=== PATIENT | female | born 1995 | race African-American/Black ===

== ENCOUNTER 2020-04-25 20:09 | Emergency (ER) | payer OTHER ==
[2020-04-25 20:26] VITALS: BP 130/72; PULSE 80; RESP 18; TEMP 98.4
[2020-04-25 21:25] LABS: Appearance,Urine Cloudy (Clear); Bilirubin,Urine Negative (Negative); Blood,Urine Negative (Negative); Color,Urine Yellow; Glucose,Urine (UA) Negative (Negative); Ketones,Urine Negative (Negative); Leukocyte Esterase,Urine Large (Negative); Mucus,Urine Few /hpf; Nitrite,Urine Negative (Negative); PH, Urine 5.5 (5.0-8.0); Protein,Urine 1+ (Negative); RBC,Urine 47 /hpf (0-5); Specific Gravity,Urine 1.032 (1.001-1.035); Squamous Epithelial Cell,Urine 1 /hpf (0-4); Urobilinogen,Urine <2.0 mg/dL (<2.0); WBC,Urine >182 /hpf (0-5)
[2020-04-25] MEDS ORDERED: metroNIDAZOLE 500 MG TAB PO STA (21:36)
--- NOTE | 2020-04-25 21:43 | ED ---
Female Urogenital HPI - General Source: patient Mode of arrival: ambulatory Limitations: no limitations - History of Present Illness Last Menstrual Period: 04/18/20 <Nakita Rabago - Last Filed: 04/25/20 21:45> <Loreta Martinez - Last Filed: 04/27/20 13:34> - General Chief complaint: Urogenital Stated complaint: Female GTU Time Seen by Provider: 04/25/20 20:28 - History of Present Illness Initial comments: Patient is a 25-year-old female presenting to the emergency department with concerns about possibly having a tampon stuck. Patient states last week she thought she was developing a yeast infection, so she looked up home remedies and soaked a small tampon and some essential oils, she did this a few times. She states last time she did it was Thursday or but she does not remember taking the last tampon out. She is unsure. Patient states since then she is developing discharge and further irritation, some occasional cramping. She denies being , she is on control. She denies any fever or chills, no nausea or vomiting. She has no further complaints at this time. (Nakita Rabago) - Related Data Allergies Allergy/AdvReac Type Severity Reaction Status Date / Time No Known Allergies Allergy Verified 04/25/20 20:25 Review of Systems ROS Other: All systems not noted in ROS Statement are negative. <Nakita Rabago - Last Filed: 04/25/20 21:45> ROS Other: All systems not noted in ROS Statement are negative. <Loreta Martinez - Last Filed: 04/27/20 13:34> ROS Statement: Those systems with pertinent positive or pertinent negative responses have been documented in the HPI. Past Medical History Past Medical History: No Reported History History of Any Multi-Drug Resistant Organisms: None Reported Past Surgical History: No Surgical Hx Reported Past Psychological History: No Psychological Hx Reported Smoking Status: Never smoker Past Alcohol Use History: None Reported Past Drug Use History: None Reported <Nakita Rabago - Last Filed: 04/25/20 21:45> General Exam Limitations: no limitations External exam: Present: normal external exam Speculum exam: Present: cervical discharge. Absent: foreign body (Cervix appears erythematous, yellow, frothy discharge.) By manual exam: Present: cervical motion tenderness (Mild tenderness.) <Nakita Rabago - Last Filed: 04/25/20 21:45> - General Exam Comments Initial Comments: GENERAL: Patient is well-developed and well-nourished. Patient is nontoxic and in no acute distress. HEAD: Atraumatic, normocephalic. EYES: Pupils equal round and reactive to light, extraocular movements intact, sclera anicteric, conjunctiva are normal. Eyelids were unremarkable. ENT: TMs normal, nares patent, oropharynx clear without exudates. Moist mucous membranes. NECK: Normal range of motion, supple without lymphadenopathy or JVD. LUNGS: Unlabored respirations. Breath sounds clear to auscultation bilaterally and equal. No wheezes rales or rhonchi. HEART: Regular rate and rhythm without murmurs, rubs or gallops. ABDOMEN: Soft, nontender, normoactive bowel sounds. No guarding, no rebound. No masses appreciated. MUSCULOSKELETAL: Normal extremities with adequate strength and normal range of motion, no pitting or edema. No clubbing or cyanosis. NEUROLOGICAL: Patient is alert and oriented x 3. Motor and sensory are also intact. Symmetrical smile. Normal speech, normal gait. PSYCH: Normal mood, normal affect. SKIN: Warm, Dry, normal turgor, no rashes or lesions noted. (Nakita Rabago) Course Vital Signs 04/25/20 20:24 Temperature 98.4 F Pulse Rate 80 Respiratory 18 Rate Blood Pressure 130/72 O2 Sat by Pulse 98 Oximetry Medical Decision Making <Nakita Rabago - Last Filed: 04/25/20 21:45> <Loreta Martinez - Last Filed: 04/27/20 13:34> - Medical Decision Making Patient is a 25-year-old female here with concerns of a tampon stuck for the last few days. On vaginal exam, there is no foreign body present, cervix appears erythematous, yellow frothy discharge noted. Urine shows WBC clumps, rapid Trichomonas is positive. I also did gonorrhea, chlamydia and genital culture which are all pending. I discussed these findings with the patient. Patient only wishes to be treated for the Trichomonas at this time, she will await the results of the swaps for any further treatment. Patient was given 2 g of Flagyl in the ER. I discussed with patient that she cannot drink with this medication for approximately one to 2 days afterwards. I did recommend getting retested in a few weeks. Patient is stable for discharge. Patient is in agreement with this plan of care. Return parameters were discussed with the patient and they verbalized understanding. Case discussed with Dr. Martinez. (Nakita Rabago) I was available for consultation in the emergency department. The history and physical exam were done by the midlevel provider. I was consulted for this patients care. I reviewed the case with the midlevel provider and based on their presentation of the patient, I agree with the assessment, medical decision making and plan of care as documented. Chart was dictated using [employer] dictation software. Attempts were made to correct any dictation errors however some typographical errors may persist. Patient was seen during a national state of emergency due to the Covid-19 pandemic. (Loreta Martinez) - Lab Data Lab Results 04/25/20 04/25/20 04/25/20 Range/Units 21:11 21:11 21:11 Urine Color Yellow Urine Appearance Cloudy H (Clear) Urine pH 5.5 (5.0-8.0) Ur Specific [place] 1.032 (1.001-1.035) Urine Protein 1+ H (Negative) Urine Glucose (UA) Negative (Negative) Urine Ketones Negative (Negative) Urine Blood Negative (Negative) Urine Nitrite Negative (Negative) Urine Bilirubin Negative (Negative) Urine Urobilinogen <2.0 (<2.0) mg/dL Ur Leukocyte Esterase Large H (Negative) Urine RBC 47 H (0-5) /hpf Urine WBC >182 H (0-5) /hpf Urine WBC Clumps Few H (None) /hpf Ur Squamous Epith Cells 1 (0-4) /hpf Urine Mucus Few H (None) /hpf Urine HCG, Qual Not Detected (Not Detectd) Trichomonas Ag (Rapid) Positive H (Negative) Disposition Is patient prescribed a controlled substance at d/c from ED?: No <Nakita Rabago - Last Filed: 04/25/20 21:45> <Loreta Martinez - Last Filed: 04/27/20 13:34> Clinical Impression: Trichomoniasis, Vaginal discharge Disposition: HOME SELF-CARE Condition: Stable Instructions (If sedation given, give patient instructions): Trichomoniasis (ED) Additional Instructions: Please return to the Emergency Department if symptoms worsen or any other concerns. Please do not drink any alcohol for 1-2 days after this medication today. Swabs are pending, they will call you with any further treatment recommendations. Please follow-up with your [facility] for testing in a few weeks. Referrals: Nonstaff,Physician [Primary Care Provider] - 1-2 days
[2020-04-27 13:43] LABS: C. trachomatis,PCR Negative (Neg,Equiv); Chlamydia trachomatis Source Cervix; N. gonorrhoeae,PCR Negative (Neg,Equiv); Neisseria Source Cervix
== END 2020-04-25 21:55 | disposition home or self-care (01) ==
LOC: EC 20:09
DX: A59.9 Trichomoniasis, unspecified (principal)
CPT/HCPCS: 81001; 81025; 87070; 87086; 87491; 87591; 87808; 99283

== ENCOUNTER 2020-05-10 04:22 | Emergency (ER) | payer OTHER ==
[2020-05-10 04:31] VITALS: BP 122/78; PULSE 76; RESP 18; TEMP 98.5
--- NOTE | 2020-05-10 04:36 | ED ---
Recheck HPI - General Chief Complaint: Abdominal Pain Stated Complaint: Pain all over Time Seen by Provider: 05/10/20 04:35 Source: patient, RN notes reviewed, old records reviewed Mode of arrival: ambulatory Limitations: no limitations, physical limitation - History of Present Illness Initial Comments: This is a 25-year-old female who presents today for evaluation of multiple complaints. She's been doing with her boyfriend who cheated on her and possible STD is TIA symptoms, vaginal discharge itching and pain. Patient also complaining of diffuse body aches and pains which she was told she may or may not have rheumatoid arthritis. She denies any other significant illness, no recurrent new sexual activity since treatment. No travel history or sick contacts and patient continually going through outpatient evaluation regarding our medical surgical history or otherwise negative MD Complaint: other (Persistent vaginal discharge pain and dysuria) -: days(s) Returns Today for: Called Because of Abnormal Lab/Test, persistent/worsening pain related to initial visit, other (Symptoms not improving) Symptoms Since Prior Visit: worsening pain Context: other (Persistent symptoms despite treatment) Associated Symptoms: nausea, other ( generalized body aches and pains) Treatments Prior to Arrival: other (none) - Related Data Previous Rx's Medication Instructions Recorded Naproxen [Naprosyn] 500 mg PO Q12HR PRN #60 tab 05/10/20 metroNIDAZOLE [Flagyl] 500 mg PO BID #28 tab 05/10/20 Allergies Allergy/AdvReac Type Severity Reaction Status Date / Time No Known Allergies Allergy Verified 05/16/20 14:51 Review of Systems ROS Statement: Those systems with pertinent positive or pertinent negative responses have been documented in the HPI. ROS Other: All systems not noted in ROS Statement are negative. Past Medical History Past Medical History: No Reported History History of Any Multi-Drug Resistant Organisms: None Reported Past Surgical History: No Surgical Hx Reported Past Psychological History: No Psychological Hx Reported Smoking Status: Never smoker Past Alcohol Use History: None Reported Past Drug Use History: None Reported General Exam General appearance: alert, in no apparent distress Head exam: Present: atraumatic, normocephalic, normal inspection Eye exam: Present: normal appearance, PERRL, EOMI. Absent: scleral icterus, conjunctival injection, periorbital swelling ENT exam: Present: normal exam, mucous membranes moist Neck exam: Present: normal inspection. Absent: tenderness, meningismus, lymphadenopathy Respiratory exam: Present: normal lung sounds bilaterally. Absent: respiratory distress, wheezes, rales, rhonchi, stridor Cardiovascular Exam: Present: regular rate, normal rhythm, normal heart sounds. Absent: systolic murmur, diastolic murmur, rubs, gallop, clicks GI/Abdominal exam: Present: soft, normal bowel sounds. Absent: distended, tenderness, guarding, rebound, rigid Extremities exam: Present: normal inspection, full ROM, normal capillary refill. Absent: tenderness, pedal edema, joint swelling, calf tenderness Back exam: Present: normal inspection Neurological exam: Present: alert, oriented X3, CN II-XII intact Psychiatric exam: Present: normal affect, normal mood Skin exam: Present: warm, dry, intact, normal color. Absent: rash Course Vital Signs 05/10/20 04:26 Temperature 98.5 F Pulse Rate 76 Respiratory 18 Rate Blood Pressure 122/78 O2 Sat by Pulse 99 Oximetry - Reevaluation(s) Reevaluation #1: Medical record is reviewed Patient's pain is improved here in the ER symptoms improved here Patient informed of results and questions have been answered Patient feels good for discharge Medical Decision Making - Medical Decision Making 25 female with multiple complaints, generalized body pain currently going through rheumatoid arthritis evaluation. Patient does have signs and symptoms of persistent STI which she will treat culture here in the emergency department - Lab Data Lab Results 05/10/20 05/10/20 Range/Units 05:47 05:47 Urine Color Light Yellow Urine Appearance Clear (Clear) Urine pH 6.0 (5.0-8.0) Ur Specific [place] 1.006 (1.001-1.035) Urine Protein Negative (Negative) Urine Glucose (UA) Negative (Negative) Urine Ketones Negative (Negative) Urine Blood Negative (Negative) Urine Nitrite Negative (Negative) Urine Bilirubin Negative (Negative) Urine Urobilinogen <2.0 (<2.0) mg/dL Ur Leukocyte Esterase Large H (Negative) Urine RBC 13 H (0-5) /hpf Urine WBC 4 (0-5) /hpf Ur Squamous Epith Cells 2 (0-4) /hpf Urine Bacteria Rare H (None) /hpf Chlamydia Source Urine Chlamydia DNA (PCR) Negative (Neg,Equiv) N. gonorrhoeae Source Urine N.gonorrhoeae DNA Probe Negative (Neg,Equiv) Disposition Clinical Impression: Vaginal discharge, Abdominal pain, Trichomoniasis Disposition: HOME SELF-CARE Condition: Good Instructions (If sedation given, give patient instructions): Sexually Transmitted Diseases (ED) Prescriptions: metroNIDAZOLE [Flagyl] 500 mg PO BID #28 tab Naproxen [Naprosyn] 500 mg PO Q12HR PRN #60 tab PRN Reason: Pain Is patient prescribed a controlled substance at d/c from ED?: No Referrals: Nonstaff,Physician [Primary Care Provider] - 1-2 days
[2020-05-10] MEDS ORDERED: cefTRIAXone 250 MG VIAL IM STA (05:37)
[2020-05-10] MEDS ORDERED: dexAMETHasone 4 MG TAB PO STA (05:37)
[2020-05-10] MEDS ORDERED: ETODOLAC 400 MG TAB PO STA (05:37)
[2020-05-10] MEDS ORDERED: AZITHROMYCIN 500 MG TAB PO STA (05:37)
[2020-05-10 06:19] LABS: Appearance,Urine Clear (Clear); Bacteria,Urine Rare /hpf; Bilirubin,Urine Negative (Negative); Blood,Urine Negative (Negative); Color,Urine Light Yellow; Glucose,Urine (UA) Negative (Negative); Ketones,Urine Negative (Negative); Leukocyte Esterase,Urine Large (Negative); Nitrite,Urine Negative (Negative); Protein,Urine Negative (Negative); RBC,Urine 13 /hpf (0-5); Specific Gravity,Urine 1.006 (1.001-1.035); Squamous Epithelial Cell,Urine 2 /hpf (0-4); Urobilinogen,Urine <2.0 mg/dL (<2.0); WBC,Urine 4 /hpf (0-5)
[2020-05-11 14:46] LABS: C. trachomatis,PCR Negative (Neg,Equiv); Chlamydia trachomatis Source Urine; N. gonorrhoeae,PCR Negative (Neg,Equiv); Neisseria Source Urine
== END 2020-05-10 06:20 | disposition home or self-care (01) ==
LOC: EC 04:22
DX: A59.9 Trichomoniasis, unspecified (principal)
CPT/HCPCS: 81001; 87491; 87591; 99284; J8540

== ENCOUNTER 2020-05-16 12:44 | Emergency (ER) | payer OTHER ==
--- NOTE | 2020-05-16 13:16 | ED ---
Extremity Problem HPI - General Source: patient Mode of arrival: ambulatory Limitations: no limitations <Kareem Tilley - Last Filed: 05/16/20 13:14> <Nakita Rabago - Last Filed: 05/16/20 14:49> - General Chief complaint: Extremity Injury, Upper Stated complaint: hand injury Time Seen by Provider: 05/16/20 13:10 - History of Present Illness Initial comments: 25-year-old female presents emergency Department with chief complaint of right hand injury. Patient states she's fell off some stairs striking her hand. She has no other injuries no other injury no loss conscious. Patient is left-hand dominant. Patient has pain over her second and third finger, hand region. Patient offers no other complaints. (Kareem Tilley) Did examine the patient, she said 25-year-old female presenting of pain in her right hand. She states she hit it on a step. She is having pain in her right middle finger mostly. She denies any other injuries. There are no further complaints. (Nakita Rabago) - Related Data Previous Rx's Medication Instructions Recorded Naproxen [Naprosyn] 500 mg PO Q12HR PRN #60 tab 05/10/20 metroNIDAZOLE [Flagyl] 500 mg PO BID #28 tab 05/10/20 Allergies Allergy/AdvReac Type Severity Reaction Status Date / Time No Known Allergies Allergy Verified 05/16/20 13:15 Review of Systems ROS Other: All systems not noted in ROS Statement are negative. <Kareem Tilley - Last Filed: 05/16/20 13:14> ROS Other: All systems not noted in ROS Statement are negative. <Nakita Rabago - Last Filed: 05/16/20 14:49> ROS Statement: Those systems with pertinent positive or pertinent negative responses have been documented in the HPI. Past Medical History Past Medical History: No Reported History History of Any Multi-Drug Resistant Organisms: None Reported Past Surgical History: No Surgical Hx Reported Past Psychological History: No Psychological Hx Reported Smoking Status: Never smoker Past Alcohol Use History: None Reported Past Drug Use History: None Reported <Kareem Tilley - Last Filed: 05/16/20 13:14> General Exam General appearance: alert, in no apparent distress Head exam: Present: atraumatic, normocephalic, normal inspection Respiratory exam: Present: normal lung sounds bilaterally. Absent: respiratory distress, wheezes, rales, rhonchi, stridor Cardiovascular Exam: Present: regular rate, normal rhythm, normal heart sounds. Absent: systolic murmur, diastolic murmur, rubs, gallop, clicks Extremities exam: Present: other (Right hand there is tenderness over the second and third MCP region, no sniffing deformity neurovascular intact no wrist tenderness) <Kareem Tilley - Last Filed: 05/16/20 13:14> <Nakita Rabago - Last Filed: 05/16/20 14:49> - General Exam Comments Initial Comments: GENERAL: Patient is well-developed and well-nourished. Patient is nontoxic and in no acu te distress. HEAD: Atraumatic, normocephalic. EYES: Pupils equal round and reactive to light, extraocular movements intact, sclera anicteric, conjunctiva are normal. Eyelids were unremarkable. ENT: Nares patent, oropharynx clear without exudates. Moist mucous membranes. NECK: Normal range of motion, supple without lymphadenopathy or JVD. LUNGS: Unlabored respirations. Breath sounds clear to auscultation bilaterally and equal. No wheezes rales or rhonchi. HEART: Regular rate and rhythm without murmurs, rubs or gallops. ABDOMEN: Soft, nontender, normoactive bowel sounds. No guarding, no rebound. No masses appreciated. : Deferred MUSCULOSKELETAL: Patient does have full range of motion of her right hand and fingers with pain at the end range of extension. No deformity seen, no swelling. No clubbing or cyanosis. NEUROLOGICAL: Patient is alert and oriented x 3. Normal speech, normal gait. PSYCH: Normal mood, normal affect. SKIN: Warm, Dry, normal turgor, no rashes or lesions noted. (Nakita Rabago) Course Vital Signs 05/16/20 13:12 Temperature 100.0 F H Pulse Rate 83 Respiratory 20 Rate Blood Pressure 120/62 O2 Sat by Pulse 98 Oximetry Medical Decision Making <Nakita Rabago - Last Filed: 05/16/20 14:49> - Medical Decision Making Patient is a 25-year-old female here with right hand pain after she hit it on a step. X-rays of the right hand reveal no acute fractures dislocations. Discussed with patient this is most likely a sprain. Recommended ice to the area, ibuprofen for any discomfort. Patient is stable for discharge. Patient is in agreement with this plan of care. Return parameters were discussed with the patient and they verbalized understanding. Case discussed with Dr. Zhu. (Nakita Rabago) Disposition <Kareem Tilley - Last Filed: 05/16/20 13:14> Is patient prescribed a controlled substance at d/c from ED?: No Time of Disposition: 14:49 <Nakita Rabago - Last Filed: 05/16/20 14:49> Clinical Impression: Sprain of right hand Disposition: HOME SELF-CARE Condition: Stable Instructions (If sedation given, give patient instructions): Hand Sprain (ED) Additional Instructions: Please return to the Emergency Department if symptoms worsen or any other concerns. Recommended ice to the area, Tylenol Motrin for any discomfort. Follow-up with your family doctor if symptoms persist. Referrals: Nonstaff,Physician [Primary Care Provider] - 1-2 days
--- NOTE | 2020-05-16 14:22 | XR ---
EXAMINATION TYPE: XR hand complete RT DATE OF EXAM: 05/16/2020 COMPARISON: None HISTORY: Pain TECHNIQUE: 3 view right hand FINDINGS: No acute fractures or dislocations are evident. Joint spaces are preserved. Soft tissues ar e normal. Follow up exams would be recommended 7-10 days from acute trauma for continued pain. IMPRESSION: 1. Normal three-view right hand right
[2020-05-16 15:02] VITALS: BP 99/59; PULSE 65; RESP 18; TEMP 98
== END 2020-05-16 15:14 | disposition home or self-care (01) ==
LOC: EC 12:44
DX: S63.652A Sprain of metacarpophalangeal joint of right middle finger, initial encounter (principal); S63.650A Sprain of metacarpophalangeal joint of right index finger, initial encounter; W10.9XXA Fall (on) (from) unspecified stairs and steps, initial encounter; Y92.009 Unspecified place in unspecified non-institutional (private) residence as the place of occurrence of the external cause
CPT/HCPCS: 99283

== ENCOUNTER 2021-03-18 01:48 | Emergency (ER) | payer OTHER ==
[2021-03-18 02:03] VITALS: BP 136/82; PULSE 103; RESP 18; TEMP 98.2
[2021-03-18] MEDS ORDERED: KETOROLAC 15 MG/ML 1 ML VIAL IM STA (02:46)
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
== END 2021-03-18 03:27 | disposition home or self-care (01) ==
LOC: EC 01:48
DX: J02.9 Acute pharyngitis, unspecified (principal)
CPT/HCPCS: 99283; 96372; 87081; 87430; J1885

== ENCOUNTER 2021-05-01 00:54 | Emergency (ER) | payer OTHER ==
[2021-05-01 01:04] VITALS: RESP 18; TEMP 98
[2021-05-01] MEDS ORDERED: KETOROLAC 15 MG/ML 1 ML VIAL IM STA (02:19)
[2021-05-01] MEDS ORDERED: KETOROLAC 15 MG/ML 1 ML VIAL IVP STA (02:30)
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
[2021-05-01 04:28] VITALS: BP 124/84; PULSE 82
[2021-05-01 14:24] LABS: HIV 2 AB Non-Reactive (Non-Reactive); HIV AB P24 Non-Reactive (Non-Reactive); HIV P24 AG Non-Reactive (Non-Reactive)
== END 2021-05-01 04:38 | disposition home or self-care (01) ==
LOC: EC 00:54
DX: J02.9 Acute pharyngitis, unspecified (principal)
CPT/HCPCS: 36415; 87070; 87390; 87430; 96374; 99283

== ENCOUNTER 2021-09-19 18:45 | Emergency (ER) | payer OTHER ==
[2021-09-19] MEDS ORDERED: IBUPROFEN 800 MG TAB PO STA (19:27)
--- NOTE | 2021-09-19 20:00 | XR ---
PROCEDURE: XR toes LT - 3V DATE AND TIME: 09/19/2021 7:50 PM CLINICAL INDICATION: right hallux pain and bruising, after trauma TECHNIQUE: Department protocol COMPARISON: None FINDINGS: There is no fracture or malalignment. The soft tissues are unremarkable. IMPRESSION: NO ACUTE PROCESS.
[2021-09-19] MEDS ORDERED: HYDROcodone/APAP 5-325MG 1 EACH TAB PO STA (20:13)
--- NOTE | 2021-09-19 20:32 | ED ---
Lower Extremity Injury HPI - General Chief Complaint: Extremity Injury, Lower Stated Complaint: poss broken toe left foot Time Seen by Provider: 09/19/21 19:04 Source: patient, family, RN notes reviewed Mode of arrival: ambulatory Limitations: no limitations - History of Present Illness Initial Comments: This is a 26-year-old female who presents to the emergency department for left foot pain. Earlier today, she dropped a cast iron the pot onto her left foot and has had excruciating pain to the left great toe and the second toe. States that the pain is now traveling up the leg. She is unable to put weight on the foot. He has not iced it or taken any OTC medication for the pain. Denies any fevers, chills, sore throat, cough, dyspnea, chest pain, palpitations, abdominal pain, nausea, vomiting, diarrhea, back pain, or headaches. MD Complaint: foot injury Injury: Foot: Left Place: home Worsens With: weight bearing, movement, palpation Context: direct blow Associated Symptoms: unable to bear weight - Related Data Previous Rx's Medication Instructions Recorded Naproxen [Naprosyn] 500 mg PO Q12HR PRN #60 tab 05/10/20 metroNIDAZOLE [Flagyl] 500 mg PO BID #28 tab 05/10/20 methylPREDNISolone Dose Pack 4 mg PO DIRECTED #1 packet 05/01/21 [Medrol Dose Pack] Allergies Allergy/AdvReac Type Severity Reaction Status Date / Time No Known Allergies Allergy Verified 05/01/21 01:04 Review of Systems ROS Statement: Those systems with pertinent positive or pertinent negative responses have been documented in the HPI. ROS Other: All systems not noted in ROS Statement are negative. Past Medical History Past Medical History: No Reported History Additional Past Medical History / Comment(s): chronic pain issues History of Any Multi-Drug Resistant Organisms: None Reported Past Surgical History: No Surgical Hx Reported Past Psychological History: No Psychological Hx Reported Smoking Status: Never smoker Past Alcohol Use History: Occasional Past Drug Use History: None Reported General Exam Limitations: no limitations General appearance: alert, in distress Head exam: Present: atraumatic, normocephalic, normal inspection Respiratory exam: Present: normal lung sounds bilaterally. Absent: respiratory distress, wheezes, rales, rhonchi, stridor Cardiovascular Exam: Present: regular rate, normal rhythm, normal heart sounds. Absent: systolic murmur, diastolic murmur, rubs, gallop, clicks Extremities exam: Present: other (Mild swelling and exquisite tenderness to the left great toe and second toe. No passive range of motion secondary to pain. 2+ dorsalis pedis and tibialis posterior pulses and capillary refill less than 1 second.) Neurological exam: Present: alert, oriented X3, CN II-XII intact Psychiatric exam: Present: normal affect, normal mood Skin exam: Present: warm, dry, intact, normal color. Absent: rash Course Vital Signs 09/19/21 09/19/21 18:55 20:51 Temperature 97.9 F 97.8 F Pulse Rate 70 77 Respiratory 18 20 Rate Blood Pressure 121/85 124/72 O2 Sat by Pulse 100 97 Oximetry Medical Decision Making - Medical Decision Making This is a 26-year-old female who presents to the emergency department for left foot pain. X-rays obtained revealing no acute abnormalities. Patient given starter packs for ibuprofen 600 mg and Tylenol #3 due to her severe pain. She was also given a postop shoe. Crutches were provided per her request, as she is unable to bear weight. Advised that if symptoms do not improve, she may need a repeat x-ray in 7-10 days to reevaluate for possible fracture. Instructed her to ice the foot for the first 2 days followed by heat there afterwards. She should take [id number] ibuprofen and Tylenol as needed for the pain as well. Return precautions reviewed in depth, the patient is instructed to return to the emergency department with any new, worsening, or concerning symptoms. Patient verbalized understanding. This case was discussed in detail with the attending ED physician. Presentation, findings, and treatment plan discussed in detail as well. - Radiology Data Radiology results: report reviewed, image reviewed Disposition Clinical Impression: Contusion of right foot including toes Disposition: HOME SELF-CARE Instructions (If sedation given, give patient instructions): Foot Contusion (ED) Additional Instructions: Return to the emergency department with any new, worsening, or concerning symptoms. Take ibuprofen and Tylenol as needed for pain. Use the walking shoe as needed, but make sure you are wearing a hard sole shoe. Apply ice for the first 2 days followed by heat there afterwards. Use crutches as needed until you are able to put weight on your foot. If symptoms do not improve, you may need a repeat x-ray in 7-10 days to reevaluate for possible fracture. Is patient prescribed a controlled substance at d/c from ED?: No Referrals: Nonstaff,Physician [Primary Care Provider] - 1-2 days
[2021-09-19] MEDS ORDERED: IBUPROFEN 600 MG STARTER PACK 4 TAB BTL PO STA (20:45)
[2021-09-19] MEDS ORDERED: ACET/COD 300 MG/30 MG STARTER PACK 6 TAB BTL PO STA (20:45)
[2021-09-19 20:52] VITALS: BP 124/72; PULSE 77; RESP 20; TEMP 97.8
== END 2021-09-19 20:58 | disposition home or self-care (01) ==
LOC: EC 18:45
DX: S90.32XA Contusion of left foot, initial encounter (principal); W20.8XXA Other cause of strike by thrown, projected or falling object, initial encounter; Y92.009 Unspecified place in unspecified non-institutional (private) residence as the place of occurrence of the external cause
CPT/HCPCS: 99283

== ENCOUNTER 2022-01-10 20:34 | Emergency (ER) | payer OTHER ==
[2022-01-10 20:38] VITALS: BP 112/65; PULSE 68; RESP 18; TEMP 97.8
[2022-01-10] MEDS ORDERED: BUPIVACAINE (PF) 0.5% 30 ML VIAL SQ STA (21:26)
--- NOTE | 2022-01-10 21:28 | ED ---
Extremity Problem HPI - General Chief complaint: Extremity Problem,Nontraumatic Stated complaint: lt toe pain Time Seen by Provider: 01/10/22 21:12 Source: patient, RN notes reviewed Mode of arrival: ambulatory Limitations: no limitations - History of Present Illness Initial comments: This is a pleasant 26-year-old female who presents to the emergency department complaining of left great toe pain. Patient states she dropped a cast iron frying [place] on her toe about 3 months ago. Patient states she has been having problems with her toe since then. Patient states she had plain film x-rays done at this facility as well as the facility across [facility] and there was no abnormality to the bone. Patient states she has a black area under her toenail. Her toenail is now coming loose and she feels like it is going to fall off. However this is irritating her toe. No headache, no fever or chills, no changes in vision or hearing, no sore throat or difficulty with speech, no neck pain, no chest pain or shortness of breath, no abdominal pain, no nausea or vomiting, no changes in urination or bowel movements, no numbness or tingling, no skin rashes or lesions. Past medical, surgical, social, and family history reviewed. - Related Data Previous Rx's Medication Instructions Recorded Naproxen [Naprosyn] 500 mg PO Q12HR PRN #60 tab 05/10/20 metroNIDAZOLE [Flagyl] 500 mg PO BID #28 tab 05/10/20 methylPREDNISolone Dose Pack 4 mg PO DIRECTED #1 packet 05/01/21 [Medrol Dose Pack] HYDROcodone/APAP 5-325MG [[place] 1 tab PO Q6HR PRN 3 Days #12 tab 01/10/22 5-325] Ibuprofen [Motrin] 600 mg PO Q8HR PRN #30 tab 01/10/22 Allergies Allergy/AdvReac Type Severity Reaction Status Date / Time No Known Allergies Allergy Verified 01/10/22 20:38 Review of Systems ROS Statement: Those systems with pertinent positive or pertinent negative responses have been documented in the HPI. ROS Other: All systems not noted in ROS Statement are negative. Past Medical History Past Medical History: No Reported History Additional Past Medical History / Comment(s): chronic pain issues History of Any Multi-Drug Resistant Organisms: None Reported Past Surgical History: No Surgical Hx Reported Past Psychological History: No Psychological Hx Reported Smoking Status: Never smoker Past Alcohol Use History: Occasional Past Drug Use History: None Reported General Exam Limitations: no limitations General appearance: alert, in no apparent distress Head exam: Present: atraumatic, normocephalic, normal inspection Eye exam: Present: normal appearance, EOMI Neck exam: Present: normal inspection Respiratory exam: Present: normal lung sounds bilaterally. Absent: respiratory distress, wheezes, rales, rhonchi, stridor Cardiovascular Exam: Present: regular rate, normal rhythm, normal heart sounds. Absent: systolic murmur, diastolic murmur, rubs, gallop, clicks GI/Abdominal exam: Absent: distended Right Ankle exam: Present: normal inspection, full ROM. Absent: tenderness, swelling Foot/Toe exam: Present: full ROM. Absent: tenderness, abrasion, laceration, ecchymosis, deformity, crepitus, dislocation, erythema, amputation, puncture wound, foreign body, calcaneal tenderness, nail avulsion, subungual hematoma Neurovascular tendon exam: Present: no vascular compromise. Absent: pulse defi cit, abnormal cap refill, motor deficit, sensory deficit, tendon deficit, extremity cold to touch, pallor, decreased fine/light touch, foot drop, peroneal nerve deficit, significant pain with passive ROM of distal joint Gait: observed and normal Left Lower Leg exam: Present: normal inspection. Absent: tenderness, swelling, abrasion Ankle exam: Present: normal inspection, full ROM. Absent: tenderness, swelling Foot/Toe exam: Present: full ROM, tenderness, ecchymosis, nail avulsion (Partial nail avulsion with old subungual hematoma), subungual hematoma. Absent: normal inspection (No evidence of infectious process. No erythema. No bleeding. No discharge. Is intact. Capillary refill less than 2 seconds), swelling, abrasion, laceration, deformity, crepitus, dislocation, erythema, amputation, puncture wound, foreign body, calcaneal tenderness, tenderness at base of 5th metatarsal Neurovascular tendon exam: Present: no vascular compromise. Absent: abnormal cap refill, motor deficit, sensory deficit, tendon deficit, extremity cold to touch, pallor Course Vital Signs 01/10/22 20:37 Temperature 97.8 F Pulse Rate 68 Respiratory 18 Rate Blood Pressure 112/65 O2 Sat by Pulse 98 Oximetry Procedures - Procedures Initial comment: Left great toe was prepped and draped in sterile fashion. Toe was prepped with Betadine. A joint block was performed using 0.5% Marcaine without epinephrine. 3 mL of anesthetic was used with a 27-gauge needle. Patient had adequate anesthesia. The nail plate was elevated using hemostats. Nail plate removed with hemostats. Patient tolerated well. Antibiotic ointment and sterile dressing applied. Medical Decision Making - Medical Decision Making Patient counseled on wound care. Patient given follow-up with podiatry. Patient counseled signs and symptoms of infection. Patient was told to return to the ER for any signs or symptoms worsen. Told to return immediately if any other problems arise. All questions answered. Treatment plan discussed. Patient in agreement Every effort has been made to ensure accuracy of this dictation. However, due to the limitations of electronic medical records and dictation devices, errors in charting still occur. Short course of [place] written, ibuprofen. Plant Custodian Dr. Martinez Disposition Clinical Impression: Avulsion of toenail of left foot Disposition: HOME SELF-CARE Condition: Stable Instructions (If sedation given, give patient instructions): Nail Avulsion (ED), Nail Removal (ED) Additional Instructions: Wash the wound daily in warm soapy water. Apply thin layer of antibiotic ointment such as Neosporin or triple antibiotic ointment. Keep covered with a bandage for [address] while taking the pain medication. Follow-up with your regular physician as directed. Return to the ER immediately if any symptoms worsen, new symptoms arise, or any other problems develop. Is patient prescribed a controlled substance at d/c from ED?: No Referrals: Jelani Waters DPM [REFERRING] - 01/13/22 Time of Disposition: 22:23
[2022-01-10] MEDS ORDERED: BACITRACIN OINT 1 EACH PACKET TOPICAL ONE (22:11)
== END 2022-01-10 22:51 | disposition home or self-care (01) ==
LOC: EC 20:34
DX: S91.202A Unspecified open wound of left great toe with damage to nail, initial encounter (principal); W20.8XXA Other cause of strike by thrown, projected or falling object, initial encounter
CPT/HCPCS: 11730; 96372; 99282

== ENCOUNTER 2022-06-05 17:31 | Emergency (ER) | payer OTHER ==
[2022-06-05 17:50] VITALS: BP 146/77; PULSE 72; RESP 20; TEMP 98.9
--- NOTE | 2022-06-05 19:26 | XR ---
EXAMINATION: XR chest 2V: 06/05/2022 6:09 PM CLINICAL INDICATION: chest pain TECHNIQUE: Departmental protocol COMPARISON: None FINDINGS: The lungs are clear. The pleural spaces are negative. The cardiac silhouette is not enlarged. The remainder of the mediastinal silhouette is unremarkable. The skeletal structures and soft tissues are negative for acute findings. IMPRESSION: No acute radiographic process.
== END 2022-06-05 19:00 | disposition left against medical advice (07) ==
LOC: EC 17:31
DX: Z53.21 Procedure and treatment not carried out due to patient leaving prior to being seen by health care provider (principal)
CPT/HCPCS: 71046; 93005; 99499

== ENCOUNTER 2022-06-07 11:59 | Emergency (ER) | payer OTHER ==
[2022-06-07 12:09] VITALS: TEMP 98.1
[2022-06-07] MEDS ORDERED: MAG HYDROX/AL HYDROX/SIMETH 30 ML, HYOSCYAMINE ELIXIR 10 ML, LIDOCAINE VISCOUS 2% 10 ML PO STA ×3 (12:43)
[2022-06-07] MEDS ORDERED: ONDANSETRON 4 MG/2 ML VIAL IVP STA (12:43)
[2022-06-07] MEDS ORDERED: ASPIRIN 81 MG PO STA (12:43)
[2022-06-07] MEDS ORDERED: PANTOPRAZOLE 40 MG/10 ML VIAL IVP STA (12:43)
[2022-06-07] MEDS ORDERED: SODIUM CHLORIDE 0.9% 1,000 ML IV STA (12:43)
[2022-06-07 13:11] VITALS: PULSE 84; RESP 16
[2022-06-07 13:19] LABS: Basophils % (A) 0 %; Eosinophils # (A) 0.1 k/uL (0-0.7); Eosinophils % (A) 2 %; HGB 12.6 gm/dL (11.4-16.0); Lymphocytes % (A) 46 %; MCH 30.2 pg (25.0-35.0); MCV 88.8 fL (80.0-100.0); Mean Platelet Volume 7.3; Monocytes # (A) 0.3 k/uL (0-1.0); Monocytes % (A) 7 %; Neutrophils # (A) 1.9 k/uL (1.3-7.7); Neutrophils % (A) 43 %; Platelet Count 254 k/uL (150-450); RBC 4.16 m/uL (3.80-5.40); RDW 12.1 % (11.5-15.5); WBC 4.5 k/uL (3.8-10.6)
--- NOTE | 2022-06-07 13:31 | XR ---
EXAMINATION TYPE: XR chest 2V DATE OF EXAM: 06/07/2022 1:28 PM COMPARISON: Chest radiographs from 06/05/2022 TECHNIQUE: XR chest 2V Frontal and lateral views of the chest. CLINICAL INDICATION:Female, 27 years old with history of Chest Pain; FINDINGS: Lungs/Pleura: There is no evidence of pleural effusion, focal consolidation, or pneumothorax. Pulmonary vascularity: Unremarkable. Heart/mediastinum: Cardiomediastinal silhouette is unremarkable. Musculoskeletal: No acute osseous pathology. IMPRESSION: No acute cardiopulmonary disease/process. No significant change from prior examination.
[2022-06-07 13:33] LABS: ALT 20 U/L (4-34); AST 23 U/L (14-36); African American GFR (CKD) >90 (>60 ml/min/1.73 sqM); Albumin 4.3 g/dL (3.5-5.0); Alkaline Phosphatase 53 U/L (38-126); Amylase 59 U/L (30-110); Anion Gap 6 mmol/L; Blood Urea Nitrogen 9 mg/dL (7-17); Calcium 9.7 mg/dL (8.4-10.2); Carbon Dioxide 26 mmol/L (22-30); Chloride 106 mmol/L (98-107); Glucose 80 mg/dL (74-99); Lipase 62 U/L (23-300); Magnesium 1.9 mg/dL (1.6-2.3); Non-African American GFR(CKD) >90 (>60 ml/min/1.73 sqM); Potassium 4.1 mmol/L (3.5-5.1); Sodium 138 mmol/L (137-145); Total Bilirubin 0.4 mg/dL (0.2-1.3); Total Protein 7.3 g/dL (6.3-8.2)
[2022-06-07 13:39] LABS: Partial Thromboplastin Time 28.2 sec (22.0-30.0); Prothrombin Time 10.8 sec (9.0-12.0)
--- NOTE | 2022-06-07 14:43 | ED ---
General Adult HPI - General Chief complaint: Chest Pain Stated complaint: chest pain Time Seen by Provider: 06/07/22 12:12 Source: patient, RN notes reviewed, old records reviewed Mode of arrival: ambulatory Limitations: no limitations - History of Present Illness Initial comments: Patient is a 27-year-old female with past medical history remarkable for GERD who presents emergency Department complaining of 1 week of intermittent chest pain. Describes as a burning, achy sensation located substernally with radiation towards the back of her throat. Typically only has it in the back of her throat but for the last week since she ate pizza she has noticed it in her chest. It is more or less constant. No known palliative or provocative factors. Has not attempted taking any medications at home for it. No history of cardiac disease. Denies any radiation of the pain. Denies any shortness breath, fevers, chills. Denies any nausea or vomiting. Denies any diarrhea. No known sick contacts. Presents for further evaluation at this time. - Related Data Previous Rx's Medication Instructions Recorded Naproxen [Naprosyn] 500 mg PO Q12HR PRN #60 tab 05/10/20 metroNIDAZOLE [Flagyl] 500 mg PO BID #28 tab 05/10/20 methylPREDNISolone Dose Pack 4 mg PO DIRECTED #1 packet 05/01/21 [Medrol Dose Pack] HYDROcodone/APAP 5-325MG [[place] 1 tab PO Q6HR PRN 3 Days #12 tab 01/10/22 5-325] Ibuprofen [Motrin] 600 mg PO Q8HR PRN #30 tab 01/10/22 Famotidine [Pepcid] 20 mg PO DAILY 14 Days #14 tablet 06/07/22 Allergies Allergy/AdvReac Type Severity Reaction Status Date / Time No Known Allergies Allergy Verified 06/07/22 12:09 Review of Systems ROS Statement: Those systems with pertinent positive or pertinent negative responses have been documented in the HPI. Review of Systems: CONST: Denies fever EYES: Denies blurry vision ENT: Denies nasal congestion C/V: Endorses burning substernal chest pain RESP: Denies shortness of breath GI: Denies abdominal pain : Denies dysuria SKIN: Denies rash. MSK: Denies joint pain. NEURO: Denies headache ROS Other: All systems not noted in ROS Statement are negative. Past Medical History Past Medical History: No Reported History Additional Past Medical History / Comment(s): chronic pain issues History of Any Multi-Drug Resistant Organisms: None Reported Past Surgical History: No Surgical Hx Reported Past Psychological History: No Psychological Hx Reported Smoking Status: Never smoker Past Alcohol Use History: Occasional Past Drug Use History: None Reported General Exam - General Exam Comments Initial Comments: General: Appears in no acute distress. HEAD: Normal with no signs of head trauma. EYES: EOMI ENT: Hearing grossly intact, normal oropharynx. RESPIRATORY: Clear breath sounds bilaterally. No wheezes, rales, or rhonchi. C/V: Regular rate and rhythm. S1 and S2 auscultated, no edema, peripheral pulses 2+ and intact throughout. Chest pain not reproducible on palpation. ABD: Abd is soft, nontender, nondistended EXT: Normal range of motion, no obvious deformity SKIN: No rashes or lesions observed on exposed skin. NEURO: Alert and oriented 4 Limitations: no limitations Course Vital Signs 06/07/22 06/07/22 06/07/22 12:05 13:10 14:54 Temperature 98.1 F Pulse Rate 69 84 84 Respiratory 18 16 16 Rate Blood Pressure 103/70 96/79 99/70 O2 Sat by Pulse 99 100 100 Oximetry Medical Decision Making - Medical Decision Making Was pt. sent in by a medical professional or institution ([facility], GRAIN CLEANER, urgent care, hospital, or group home...) When possible be specific @ -No Did you speak to anyone other than the patient for history (EMS, parent, family, police, friend...)? What history was obtained from this source @ -No Did you review nursing and triage notes (agree or disagree)? Why? @ -I reviewed and agree with nursing and triage notes Were old charts reviewed (outside hosp., previous admission, EMS record, old E KG, old radiological studies, urgent care reports/EKG's, group home records)? Report findings @ -No prior EKG for comparison Differential Diagnosis (chest pain, altered mental status, abdominal pain women, abdominal pain men, vaginal bleeding, weakness, fever, dyspnea, syncope, headache, dizziness, GI bleed, back pain, seizure, CVA, palpatations, mental hea lth, musculoskeletal)? @ -Acid reflux, ACS, PE, atypical chest pain. This list is not all-inclusive. EKG interpreted by me (3pts min.). @ -As above X-rays interpreted by me (1pt min.). @ -Chest x-ray reveals no obvious cardio pulmonary process. CT interpreted by me (1pt min.). @ -None done U/S interpreted by me (1pt. min.). @ -None done What testing was considered but not performed or refused? (CT, X-rays, U/S, labs)? Why? @ -None What meds were considered but not given or refused? Why? @ -None Did you discuss the management of the patient with other professionals (professionals i.e. , PA, GRAIN CLEANER, lab, RT, psych nurse, social work coordinator, shearing shed hand, teacher, senior commercial loan officer, telehealth case manager)? Give summary @ -No Was smoking cessation discussed for >3mins.? @ -No Was critical care preformed (if so, how long)? @ -No Were there social determinants of health that impacted care today? How? (Homelessness, low income, unemployed, alcoholism, drug addiction, transportation, low edu. Level, literacy, decrease access to med. care, detention, rehab)? @ -No Was there de-escalation of care discussed even if they declined (Discuss DNR or withdrawal of care, Hospice)? DNR status @ -No What co-morbidities impacted this encounter? (DM, HTN, Smoking, COPD, CAD, Cancer, CVA, ARF, Chemo, Hep., AIDS, mental health diagnosis, sleep apnea, morbid obesity)? @ -None Was patient admitted / discharged? Hospital course, mention meds given and route, prescriptions, significant lab abnormalities, going to OR and other pertinent info. @ -Based on the patient's presentation and physical exam, I do suspect and acid reflux type atypical chest pain for the patient currently but we will obtain a cardiopulmonary labs including screening d-dimer due to the chronicity of the pain. She was in agreement this plan. She'll be empirically treated with a GI cocktail, IV Zofran, Protonix, 1 L fluid bolus and aspirin. She was in agreement with this plan. Vital signs within acceptable limits. EKG showed no signs of acute ischemia. Laboratory studies are within acceptable limits including a negative d-dimer, a troponin that is undetectable. Chest x- ray showed no obvious acute cardiopulmonary process. On reevaluation, I did update the patient and discussed results with her. She is feeling improved and symptoms have resolved. We discussed she is likely experiencing acid reflux type symptoms. Recommended she follow-up with GI physician and obtain an EGD. She was in agreement with this plan. Strict return precautions were discussed. Heart scores low at 0. I will provide the patient with a prescription for Pepcid. I instructed the patient to follow up with their PCP in the next 1-3 days. I provided contact information for follow up with gastroenterology. I explained that the patient should return to the emergency department if they experience any worsening symptoms. Strict return precautions were discussed with the patient. The patient expressed understanding of these instructions. I answered all questions that the patient had. The patient was discharged home in good condition with their prescriptions and follow up information. Undiagnosed new problem with uncertain prognosis? @ -No Drug Therapy requiring intensive monitoring for toxicity (Heparin, Nitro, Insulin, Cardizem)? @ -No Were any procedures done? @ -No Diagnosis/symptom? @ -GERD, atypical chest pain Acute, or Chronic, or Acute on Chronic? @ -Acute Uncomplicated (without systemic symptoms) or Complicated (systemic symptoms)? @ -Uncomplicated Side effects of treatment? @ -No Exacerbation, Progression, or Severe Exacerbation? @ -No Poses a threat to life or bodily function? How? (Chest pain, [place], [place], pneumonia, PE, COPD, DKA, ARF, appy, cholecystitis, CVA, Diverticulitis, Homicidal, Suicidal, threat to staff... and all critical care pts) @ -No - Lab Data Result diagrams: 06/07/22 13:04 06/07/22 13:04 Lab Results 06/07/22 06/07/22 06/07/22 Range/Units 13:04 13:04 13:04 WBC 4.5 (3.8-10.6) k/uL RBC 4.16 (3.80-5.40) m/uL Hgb 12.6 (11.4-16.0) gm/dL Hct 37.0 (34.0-46.0) % MCV 88.8 (80.0-100.0) fL MCH 30.2 (25.0-35.0) pg MCHC 34.0 (31.0-37.0) g/dL RDW 12.1 (11.5-15.5) % Plt Count 254 (150-450) k/uL MPV 7.3 Neutrophils % 43 % Lymphocytes % 46 % Monocytes % 7 % Eosinophils % 2 % Basophils % 0 % Neutrophils # 1.9 (1.3-7.7) k/uL Lymphocytes # 2.0 (1.0-4.8) k/uL Monocytes # 0.3 (0-1.0) k/uL Eosinophils # 0.1 (0-0.7) k/uL Basophils # 0.0 (0-0.2) k/uL PT 10.8 (9.0-12.0) sec INR 1.0 (<1.2) APTT 28.2 (22.0-30.0) sec D-Dimer 0.42 (<0.60) mg/L FEU Sodium 138 (137-145) mmol/L Potassium 4.1 (3.5-5.1) mmol/L Chloride 106 (98-107) mmol/L Carbon Dioxide 26 (22-30) mmol/L Anion Gap 6 mmol/L BUN 9 (7-17) mg/dL Creatinine 0.64 (0.52-1.04) mg/dL Est GFR (CKD-EPI)AfAm >90 (>60 ml/min/1.73 sqM) Est GFR (CKD-EPI)NonAf >90 (>60 ml/min/1.73 sqM) Glucose 80 (74-99) mg/dL Calcium 9.7 (8.4-10.2) mg/dL Magnesium 1.9 (1.6-2.3) mg/dL Total Bilirubin 0.4 (0.2-1.3) mg/dL AST 23 (14-36) U/L ALT 20 (4-34) U/L Alkaline Phosphatase 53 (38-126) U/L Troponin I (0.000-0.034) ng/mL Total Protein 7.3 (6.3-8.2) g/dL Albumin 4.3 (3.5-5.0) g/dL Amylase 59 (30-110) U/L Lipase 62 (23-300) U/L / Range/Units 13:04 WBC (3.8-10.6) k/uL RBC (3.80-5.40) m/uL Hgb (11.4-16.0) gm/dL Hct (34.0-46.0) % MCV (80.0-100.0) fL MCH (25.0-35.0) pg MCHC (31.0-37.0) g/dL RDW (11.5-15.5) % Plt Count (150-450) k/uL MPV Neutrophils % % Lymphocytes % % Monocytes % % Eosinophils % % Basophils % % Neutrophils # (1.3-7.7) k/uL Lymphocytes # (1.0-4.8) k/uL Monocytes # (0-1.0) k/uL Eosinophils # (0-0.7) k/uL Basophils # (0-0.2) k/uL PT (9.0-12.0) sec INR (<1.2) APTT (22.0-30.0) sec D-Dimer (<0.60) mg/L FEU Sodium (137-145) mmol/L Potassium (3.5-5.1) mmol/L Chloride (98-107) mmol/L Carbon Dioxide (22-30) mmol/L Anion Gap mmol/L BUN (7-17) mg/dL Creatinine (0.52-1.04) mg/dL Est GFR (CKD-EPI)AfAm (>60 ml/min/1.73 sqM) Est GFR (CKD-EPI)NonAf (>60 ml/min/1.73 sqM) Glucose (74-99) mg/dL Calcium (8.4-10.2) mg/dL Magnesium (1.6-2.3) mg/dL Total Bilirubin (0.2-1.3) mg/dL AST (14-36) U/L ALT (4-34) U/L Alkaline Phosphatase (38-126) U/L Troponin I <0.012 (0.000-0.034) ng/mL Total Protein (6.3-8.2) g/dL Albumin (3.5-5.0) g/dL Amylase (30-110) U/L Lipase (23-300) U/L - EKG Data -: EKG Interpreted by Me EKG Comments: 12-lead Electrocardiogram Interpretation Note EKG was reviewed and interpreted by myself. 12-lead ECG performed at 1214 is interpreted by me as revealing normal sinus rhythm at a rate of 71 beats per minute. Prather is normal. WA interval is 155 ms, QRS duration is 93 ms, QTc is 380 ms.. Patient has what appears to be slight right bundle branch block morphology. There were no ST or T wave abnormalities to suggest myocardial ischemia or injury. R wave progression across the precordium was satisfactory. By my interpretation this EKG is non-diagnostic for acute ischemia. No prior EKG for comparison. Disposition Clinical Impression: GERD (gastroesophageal reflux disease), Atypical chest pain Disposition: HOME SELF-CARE Condition: Good Instructions (If sedation given, give patient instructions): GERD (Gastroesophageal Reflux Disease) (DC) Prescriptions: Famotidine [Pepcid] 20 mg PO DAILY 14 Days #14 tablet Is patient prescribed a controlled substance at d/c from ED?: No Referrals: None,Stated [Primary Care Provider] - 1-2 days Alexandria King MD [STAFF PHYSICIAN] - 1-2 days Time of Disposition: 14:20
[2022-06-07 14:55] VITALS: BP 99/70
== END 2022-06-07 14:56 | disposition home or self-care (01) ==
LOC: EC 11:59
DX: R07.89 Other chest pain (principal); K21.9 Gastro-esophageal reflux disease without esophagitis
CPT/HCPCS: 36415; 93005; 85379; 80053; 82150; 83690; 83735; 84484; 85025; 85610; 85730; 71046; 99285; 96374; 96375; 96361 ×2; J2405; C9113

== ENCOUNTER 2022-07-28 20:16 | Emergency (ER) | payer OTHER ==
[2022-07-28 20:21] VITALS: BP 115/78; PULSE 80; RESP 16; TEMP 99.2
--- NOTE | 2022-07-28 21:35 | ED ---
Female Urogenital HPI - General Chief complaint: Urogenital Stated complaint: uti Time Seen by Provider: 07/28/22 20:33 Source: patient Mode of arrival: ambulatory Limitations: no limitations - History of Present Illness Initial comments: Patient is a 27-year-old female presents to the emergency department for vaginal itching. Patient reports itching of the right vulva for the past week. There is no pain. She actually denies burning with urination states she lied to triage nurse because she does not want anyone to know her business. She denies vaginal discharge. Denies fever, chills, abdominal pain, nausea, vomiting. No urinary frequency or urgency. Patient started her menstrual cycle prior to arrival. She did have unprotected intercourse with her ex-boyfriend 2 weeks ago. She does not know if her boyfriend is having any symptoms. - Related Data Previous Rx's Medication Instructions Recorded Naproxen [Naprosyn] 500 mg PO Q12HR PRN #60 tab 05/10/20 metroNIDAZOLE [Flagyl] 500 mg PO BID #28 tab 05/10/20 methylPREDNISolone Dose Pack 4 mg PO DIRECTED #1 packet 05/01/21 [Medrol Dose Pack] HYDROcodone/APAP 5-325MG [[place] 1 tab PO Q6HR PRN 3 Days #12 tab 01/10/22 5-325] Ibuprofen [Motrin] 600 mg PO Q8HR PRN #30 tab 01/10/22 Famotidine [Pepcid] 20 mg PO DAILY 14 Days #14 tablet 06/07/22 Allergies Allergy/AdvReac Type Severity Reaction Status Date / Time No Known Allergies Allergy Verified 06/07/22 12:09 Review of Systems ROS Statement: Those systems with pertinent positive or pertinent negative responses have been documented in the HPI. ROS Other: All systems not noted in ROS Statement are negative. Past Medical History Past Medical History: No Reported History Additional Past Medical History / Comment(s): chronic pain issues History of Any Multi-Drug Resistant Organisms: None Reported Past Surgical History: No Surgical Hx Reported Past Psychological History: No Psychological Hx Reported Smoking Status: Never smoker Past Alcohol Use History: Occasional Past Drug Use History: None Reported General Exam Limitations: no limitations General appearance: alert, in no apparent distress Head exam: Present: atraumatic, normocephalic, normal inspection Eye exam: Present: normal appearance, PERRL, EOMI. Absent: scleral icterus, conjunctival injection, periorbital swelling Respiratory exam: Present: normal lung sounds bilaterally. Absent: respiratory distress, wheezes, rales, rhonchi, stridor Cardiovascular Exam: Present: regular rate, normal rhythm, normal heart sounds. Absent: systolic murmur, diastolic murmur, rubs, gallop, clicks External exam: Present: normal external exam. Absent: erythema, swelling, lesions, lacerations, ecchymosis Speculum exam: Present: normal speculum exam, vaginal bleeding. Absent: vaginal discharge By manual exam: Present: normal by manual exam Neurological exam: Present: alert, oriented X3, CN II-XII intact Psychiatric exam: Present: normal affect, normal mood Skin exam: Present: warm, dry, intact, normal color. Absent: rash Course Vital Signs 07/28/22 20:19 Temperature 99.2 F Pulse Rate 80 Respiratory 16 Rate Blood Pressure 115/78 O2 Sat by Pulse 100 Oximetry Medical Decision Making - Medical Decision Making Was pt. sent in by a medical professional or institution (, PA, CNC SERVICE TECHNICIAN, urgent care, hospital, or prison...) When possible be specific @ -No Did you speak to anyone other than the patient for history (EMS, parent, family, police, friend...)? What history was obtained from this source @ -No Did you review nursing and triage notes (agree or disagree)? Why? @ -I reviewed and agree with nursing and triage notes Were old charts reviewed (outside hosp., previous admission, EMS record, old EKG, old radiological studies, urgent care reports/EKG's, prison records)? Report findings @ -No old charts were reviewed Differential Diagnosis (chest pain, altered mental status, abdominal pain women, abdominal pain men, vaginal bleeding, weakness, fever, dyspnea, syncope, heada judd, dizziness, GI bleed, back pain, seizure, CVA, palpatations, mental health)? @ -STI, urinary tract infection, vaginitis, yeast. This list is not meant to be all-inclusive EKG interpreted by me (3pts min.). @ -As above X-rays interpreted by me (1pt min.). @ -None done CT interpreted by me (1pt min.). @ -None done U/S interpreted by me (1pt. min.). @ -None done What testing was considered but not performed or refused? (CT, X-rays, U/S, labs)? Why? @ -None What meds were considered but not given or refused? Why? @ -None Did you discuss the management of the patient with other professionals (professionals i.e. , PA, CNC SERVICE TECHNICIAN, lab, RT, psych nurse, social service agency director, floatlight powder mixer, teacher, fire information officer, housing case manager)? Give summary @ -No Was smoking cessation discussed for >3mins.? @ -No Was critical care preformed (if so, how long)? @ -No Were there social determinants of health that impacted care today? How? (Homelessness, low income, unemployed, alcoholism, drug addiction, transportation, low edu. Level, literacy, decrease access to med. care, group home, rehab)? @ -No Was there de-escalation of care discussed even if they declined (Discuss DNR or withdrawal of care, Hospice)? DNR status @ -No What co-morbidities impacted this encounter? (DM, HTN, Smoking, COPD, CAD, Cancer, CVA, ARF, Chemo, Hep., AIDS, mental health diagnosis, sleep apnea, morbid obesity)? @ -None Was patient admitted / discharged? Hospital course, mention meds given and route, prescriptions, significant lab abnormalities, going to OR and other pertinent info. @ -Patient presenting for vaginal itching of her right labia majora. Examination is unremarkable, no erythema, no swelling, no lesions. Pelvic exam is also unremarkable no discharge, swabs were obtained for gonorrhea, chlamydia, Trichomonas, genital culture. I recommended HSV testing patient agreed however the nurse went to draw blood patient refused and she had thrown away her urine and swabs and an unknown trash can. Patient requesting to leave and was discharged. Undiagnosed new problem with uncertain prognosis? @ -No Drug Therapy requiring intensive monitoring for toxicity (Heparin, Nitro, Insulin, Cardizem)? @ -No Were any procedures done? @ -No Diagnosis/symptom? @ -vaginal itching Acute, or Chronic, or Acute on Chronic? @ -acute Uncomplicated (without systemic symptoms) or Complicated (systemic symptoms)? @ -uncomplicated Side effects of treatment? @ -[No] Exacerbation, Progression, or Severe Exacerbation? @ -[No] Poses a threat to life or bodily function? How? (Chest pain, [place], [place], pneumonia, PE, COPD, DKA, ARF, appy, cholecystitis, CVA, Diverticulitis, Homicidal, Suicidal, threat to staff... and all critical care pts) @ -[No] Dr. Martinez is my attending Disposition Clinical Impression: Vaginal itching Disposition: HOME SELF-CARE Condition: Good Instructions (If sedation given, give patient instructions): Sexually Transmitted Diseases (ED) Additional Instructions: Please follow-up with your primary care provider in 1-2 days. Return to the emergency department if you experience new, concerning, or worsening symptoms. Is patient prescribed a controlled substance at d/c from ED?: No Referrals: Nonstaff,Physician [Primary Care Provider] - 1-2 days
== END 2022-07-28 21:52 | disposition home or self-care (01) ==
LOC: EC 20:16
DX: L29.2 Pruritus vulvae (principal)
CPT/HCPCS: 99283